=== PATIENT | male | born 1950 | race Asian ===

== ENCOUNTER 2017-01-24 00:48 | Inpatient (IN) | payer OTHER ==
[~2017-01-24] VITALS: Ht 165.1 cm; Wt 65.4 kg
[2017-01-24 02:24] LABS: PLATELET COUNT 372 x10^3mcL (130-400); RED CELL DISTRIBUTION WIDTH 12.9 % (11.5-14.5)
[2017-01-24 02:27] LABS: UA SPECIFIC GRAVITY 1.015 (1.005-1.035); microscopic required? YES; urine erythrocyte 2+ (NEGATIVE)
[2017-01-24 02:32] LABS: BASOPHIL % 0 % (0-2)
[2017-01-24 02:33] LABS: CALCIUM 9.1 mg/dL (8.5-10.1); CARBON DIOXIDE 26.7 mmol/L (21-32); CREATININE SERUM 1.8 mg/dL (0.7-1.3)
[2017-01-24 02:38] LABS: BILIRUBIN TOTAL 0.58 mg/dL (0.20-1.00); TOTAL PROTEIN, SERUM 7.3 g/dL (6.4-8.2)
[2017-01-24] MEDS ORDERED: CLONIDINE HCL0.2 MG (04:26)
[2017-01-24] MEDS ORDERED: LIPITOR20 MG PO (04:27)
[2017-01-24] MEDS ORDERED: PREDNISONE5 MG (04:28)
[2017-01-24] MEDS ORDERED: ATENOLOL50 MG PO (04:28)
[2017-01-24] MEDS ORDERED: FUROSEMIDE80 MG PO (04:28)
[2017-01-24] MEDS ORDERED: TRAMADOL HCL50 MG (04:29)
[2017-01-24 04:40] LABS: MAGNESIUM 2.1 mg/dL (1.8-2.4); PHOSPHOROUS 4.3 mg/dL (2.5-4.9)
[2017-01-24 04:41] LABS: CHOLESTEROL/HDL RATIO 4.3
[2017-01-24 04:48] LABS: FREE T4 1.02 ng/dL (0.76-1.46); FREE THYROXINE INDEX 3.2 ug/dL (1.4-4.5); T3 TOTAL 1.1 ng/mL; T4(THYROXINE) 9.7 ug/dL (4.7-13.3)
[2017-01-24 05:41] VITALS: BP 204/101
[2017-01-24 05:50] LABS: AMPHETAMINE QUAL UR NONE DETECTED (NEG <=1000)
[2017-01-24 07:00] VITALS: BP 159/87
[2017-01-24 13:20] VITALS: BP 169/80
[2017-01-24 15:45] VITALS: BP 145/78
[2017-01-24 18:04] VITALS: BP 162/84
[2017-01-24 20:57] VITALS: BP 174/90
[2017-01-25] VITALS: BP 174/88
[2017-01-25 05:00] VITALS: BP 130/88
[2017-01-25 07:06] LABS: BASOPHIL % 0.5 % (0-2); PLATELET COUNT 247 x10^3mcL (130-400); RED CELL DISTRIBUTION WIDTH 13.6 % (11.5-14.5)
[2017-01-25 07:07] LABS: CALCIUM 8.2 mg/dL (8.5-10.1); CARBON DIOXIDE 26.3 mmol/L (21-32); CREATININE SERUM 1.7 mg/dL (0.7-1.3); MAGNESIUM 1.8 mg/dL (1.8-2.4); PHOSPHOROUS 4.3 mg/dL (2.5-4.9); POTASSIUM SERUM 3.8 mmol/L (3.5-5.1)
[2017-01-25 08:48] VITALS: BP 172/92
[2017-01-25 10:45] VITALS: BP 165/80
[2017-01-25] MEDS ORDERED: FLE10 PO (13:07)
[2017-01-25] MEDS ORDERED: COZ25 PO (13:08)
[2017-01-25] MEDS ORDERED: NOR5 PO (13:08)
[2017-01-25 13:59] VITALS: BP 140/71
[2017-01-25 14:31] VITALS: BP 140/71
== END 2017-01-25 16:48 | disposition home or self-care (01) | DRG 205 ==
LOC: ED 00:48 → DU 03:29
PROVIDERS: Emergency Medicine; ADMIT Family Medicine
DX: M94.0 Chondrocostal junction syndrome [Tietze] (principal); N00.9 Acute nephritic syndrome with unspecified morphologic changes; N17.0 Acute kidney failure with tubular necrosis; E87.1 Hypo-osmolality and hyponatremia; E24.2 Drug-induced Cushing's syndrome; E44.1 Mild protein-calorie malnutrition; D68.69 Other thrombophilia; E11.65 Type 2 diabetes mellitus with hyperglycemia; G89.29 Other chronic pain; M54.5 Low back pain; I10 Essential (primary) hypertension; E87.8 Other disorders of electrolyte and fluid balance, not elsewhere classified; E78.00 Pure hypercholesterolemia, unspecified; Z82.49 Family history of ischemic heart disease and other diseases of the circulatory system; K59.00 Constipation, unspecified
CPT/HCPCS: 83880; 84439; J0360; J7030; J7512; Q0092

== ENCOUNTER 2017-10-07 08:16 | Day surgery (SDC) | payer OTHER ==
[~2017-10-07] VITALS: Ht 165.1 cm; Wt 74.8 kg
[~2017-10-07 08:16] MED LIST: ATENOLOL50 MG PO; CLONIDINE HCL0.2 MG; COZ25 PO; FLE10 PO; FUROSEMIDE80 MG PO; LIPITOR20 MG PO; NOR5 PO; PREDNISONE5 MG; TRAMADOL HCL50 MG
[2017-10-07 08:50] VITALS: BP 159/90
[2017-10-07 13:21] VITALS: BP 166/97
== END 2017-10-07 12:35 | disposition home or self-care (01) ==
LOC: GI 08:16 → OR 11:15 → GI 12:35
PROVIDERS: Internal Medicine Gastroenterology
PROC: 0DBL8ZZ Excision of Transverse Colon, Via Natural or Artificial Opening Endoscopic (ICD-10-PCS; principal; 2017-10-07 11:15)
DX: Z12.11 Encounter for screening for malignant neoplasm of colon (principal); D12.3 Benign neoplasm of transverse colon; K57.30 Diverticulosis of large intestine without perforation or abscess without bleeding; K64.8 Other hemorrhoids; Z86.010 Personal history of colon polyps
CPT/HCPCS: 45378; J1200; J1610; J2250; J2310; J3010; J3490

== ENCOUNTER → 2017-12-12 | Outpatient (CLI) | payer OTHER ==
[2017-12-14 09:35] LABS: ALBUMIN 3.7 g/dL (3.4-5.0); BILIRUBIN TOTAL 0.5 mg/dL (0.20-1.00); CALCIUM 8.9 mg/dL (8.5-10.1); CARBON DIOXIDE 27.8 mmol/L (21-32); CREATININE SERUM 1.5 mg/dL (0.7-1.3); POTASSIUM SERUM 3.8 mmol/L (3.5-5.1); TOTAL PROTEIN, SERUM 7.8 g/dL (6.4-8.2)
[2017-12-14 09:38] LABS: BASOPHIL % 0.2 % (0-2); PLATELET COUNT 313 x10^3mcL (130-400)
[2017-12-14 09:39] LABS: RED CELL DISTRIBUTION WIDTH 15.3 % (11.5-14.5)
== END | disposition home or self-care (01) ==
LOC: RD 14:11
DX: Z01.810 Encounter for preprocedural cardiovascular examination (principal)

== ENCOUNTER 2017-12-21 06:15 | Day surgery (SDC) | payer OTHER ==
[~2017-12-21] VITALS: Ht 165.1 cm; Wt 74.8 kg
[2017-12-21 06:48] VITALS: BP 168/93
[2017-12-21 09:29] VITALS: BP 156/90
== END 2017-12-21 09:25 | disposition home or self-care (01) ==
LOC: DS 06:15 → OR 07:30 → DS 09:25
PROVIDERS: Ophthalmology
PROC: 08RJ3JZ Replacement of Right Lens with Synthetic Substitute, Percutaneous Approach (ICD-10-PCS; principal; 2017-12-21 07:30)
DX: H25.11 Age-related nuclear cataract, right eye (principal); I12.9 Hypertensive chronic kidney disease with stage 1 through stage 4 chronic kidney disease, or unspecified chronic kidney disease; E11.22 Type 2 diabetes mellitus with diabetic chronic kidney disease; N18.3 Chronic kidney disease, stage 3 (moderate); M10.9 Gout, unspecified; E78.5 Hyperlipidemia, unspecified; Z79.84 Long term (current) use of oral hypoglycemic drugs; Z79.52 Long term (current) use of systemic steroids
CPT/HCPCS: 82962; C1780; J2250; J3010; J7040

== ENCOUNTER → 2018-01-26 | Outpatient (CLI) | payer OTHER ==
[2018-01-26 10:10] LABS: microscopic required? YES; urine erythrocyte 1+ (NEGATIVE)
[2018-01-26 10:32] LABS: BASOPHIL % 0.1 % (0-2); PLATELET COUNT 335 x10^3mcL (130-400)
[2018-01-26 10:33] LABS: RED CELL DISTRIBUTION WIDTH 15.1 % (11.5-14.5)
[2018-01-26 13:24] LABS: CREATININE UR 67.4 mg/dL
[2018-01-26 14:23] LABS: ALBUMIN 3.6 g/dL (3.4-5.0); BILIRUBIN TOTAL 0.53 mg/dL (0.20-1.00); CARBON DIOXIDE 25.2 mmol/L (21-32); CREATININE SERUM 1.3 mg/dL (0.7-1.3); POTASSIUM SERUM 3.7 mmol/L (3.5-5.1); TOTAL PROTEIN, SERUM 7.5 g/dL (6.4-8.2)
== END | disposition home or self-care (01) ==
LOC: LB 09:19
PROVIDERS: Internal Medicine
DX: N18.3 Chronic kidney disease, stage 3 (moderate) (principal); I12.9 Hypertensive chronic kidney disease with stage 1 through stage 4 chronic kidney disease, or unspecified chronic kidney disease; E78.5 Hyperlipidemia, unspecified; D63.1 Anemia in chronic kidney disease; Z01.818 Encounter for other preprocedural examination

== ENCOUNTER 2018-02-03 06:27 | Day surgery (SDC) | payer OTHER ==
[2018-02-02 07:35] LABS: BASOPHIL % 0.3 % (0-2); PLATELET COUNT 339 x10^3mcL (130-400)
[2018-02-02 07:36] LABS: RED CELL DISTRIBUTION WIDTH 15.3 % (11.5-14.5)
[2018-02-02 08:12] LABS: ALBUMIN 3.5 g/dL (3.4-5.0); BILIRUBIN TOTAL 0.41 mg/dL (0.20-1.00); CALCIUM 9.4 mg/dL (8.5-10.1); CARBON DIOXIDE 28.9 mmol/L (21-32); CREATININE SERUM 1.4 mg/dL (0.7-1.3); TOTAL PROTEIN, SERUM 7.6 g/dL (6.4-8.2)
[~2018-02-03] VITALS: Ht 165.1 cm; Wt 74.8 kg
[2018-02-03 06:52] VITALS: BP 161/93
[2018-02-03 10:59] VITALS: BP 140/89
== END 2018-02-03 09:20 | disposition home or self-care (01) ==
LOC: DS 06:27 → OR 08:30 → DS 09:20
PROVIDERS: Ophthalmology
PROC: 08RK3JZ Replacement of Left Lens with Synthetic Substitute, Percutaneous Approach (ICD-10-PCS; principal; 2018-02-03 07:30)
DX: H25.12 Age-related nuclear cataract, left eye (principal)
CPT/HCPCS: C1780; J2001; J2250

== ENCOUNTER → 2018-05-08 | Outpatient (CLI) | payer OTHER ==
[2018-05-08 09:06] LABS: BASOPHIL % 0.5 % (0-2); PLATELET COUNT 348 x10^3mcL (130-400); RED CELL DISTRIBUTION WIDTH 13.7 % (11.5-14.5)
[2018-05-08 09:10] LABS: BILIRUBIN TOTAL 0.39 mg/dL (0.20-1.00); CALCIUM 8.5 mg/dL (8.5-10.1); CARBON DIOXIDE 24.3 mmol/L (21-32); CREATININE SERUM 1.5 mg/dL (0.7-1.3); POTASSIUM SERUM 3.6 mmol/L (3.5-5.1); TOTAL PROTEIN, SERUM 7.4 g/dL (6.4-8.2)
[2018-05-08 09:29] LABS: ALBUMIN 3.1 g/dL (3.4-5.0)
== END | disposition home or self-care (01) ==
LOC: LB 08:29
DX: E11.9 Type 2 diabetes mellitus without complications (principal)

== ENCOUNTER → 2018-05-31 | Outpatient (CLI) | payer OTHER ==
[2018-05-31 08:36] LABS: microscopic required? YES; urine erythrocyte TRACE (NEGATIVE)
[2018-05-31 08:37] LABS: BASOPHIL % 0.3 % (0-2); PLATELET COUNT 348 x10^3mcL (130-400); RED CELL DISTRIBUTION WIDTH 14.2 % (11.5-14.5)
[2018-05-31 09:24] LABS: ALBUMIN 3.7 g/dL (3.4-5.0); BILIRUBIN TOTAL 0.38 mg/dL (0.20-1.00); CALCIUM 9.4 mg/dL (8.5-10.1); CARBON DIOXIDE 25.6 mmol/L (21-32); CREATININE SERUM 1.6 mg/dL (0.7-1.3); POTASSIUM SERUM 4.2 mmol/L (3.5-5.1); TOTAL PROTEIN, SERUM 8.2 g/dL (6.4-8.2); URIC ACID 7.5 mg/dL (3.5-7.2)
[2018-05-31 10:00] LABS: CHOLESTEROL/HDL RATIO 4.5
[2018-06-01 10:43] LABS: CREATININE UR 49.1 mg/dL (Not Estab.)
== END | disposition home or self-care (01) ==
LOC: LB 07:40
PROVIDERS: Internal Medicine
DX: I12.9 Hypertensive chronic kidney disease with stage 1 through stage 4 chronic kidney disease, or unspecified chronic kidney disease (principal); E78.5 Hyperlipidemia, unspecified; D63.1 Anemia in chronic kidney disease; N04.9 Nephrotic syndrome with unspecified morphologic changes

== ENCOUNTER → 2018-08-25 | Outpatient (CLI) | payer OTHER ==
[2018-08-25 07:47] LABS: microscopic required? YES; urine erythrocyte TRACE (NEGATIVE)
[2018-08-25 07:48] LABS: BASOPHIL % 0.4 % (0-2); PLATELET COUNT 321 x10^3mcL (130-400)
[2018-08-25 08:08] LABS: ALBUMIN 3.7 g/dL (3.4-5.0); ALKALINE PHOSPHATASE 82 U/L (46-116); ALT/SGPT 35 U/L (16-63); AST/SGOT 29 U/L (15-37); BILIRUBIN TOTAL 0.4 mg/dL (0.20-1.00); CALCIUM 9.2 mg/dL (8.5-10.1); CARBON DIOXIDE 28.2 mmol/L (21-32); CHLORIDE SERUM 100 mmol/L (98-107); CHOLESTEROL 178 mg/dL (<200); CHOLESTEROL/HDL RATIO 4.3; CREATININE SERUM 1.7 mg/dL (0.7-1.3); GFR1 43 mL/min; GLUCOSE SERUM 139 mg/dL (74-106); HDL CHOLESTEROL 41 mg/dL (40-60); POTASSIUM SERUM 3.8 mmol/L (3.5-5.1); RED CELL DISTRIBUTION WIDTH 15.5 % (11.5-14.5); SODIUM SERUM 138 mmol/L (136-145); TOTAL PROTEIN, SERUM 8.1 g/dL (6.4-8.2); URIC ACID 7.7 mg/dL (3.5-7.2)
[2018-08-25 08:16] LABS: TRIGLYCERIDES 416 mg/dL (<150)
[2018-08-26 09:08] LABS: CREATININE UR 57.4 mg/dL (Not Estab.)
== END | disposition home or self-care (01) ==
LOC: LB 07:19
PROVIDERS: Internal Medicine
DX: E11.9 Type 2 diabetes mellitus without complications (principal); I12.9 Hypertensive chronic kidney disease with stage 1 through stage 4 chronic kidney disease, or unspecified chronic kidney disease; E78.5 Hyperlipidemia, unspecified; N04.9 Nephrotic syndrome with unspecified morphologic changes

== ENCOUNTER → 2018-11-14 | Outpatient (CLI) | payer OTHER ==
[2018-11-14 09:27] LABS: BASOPHIL % 0.6 % (0-2); PLATELET COUNT 322 x10^3mcL (130-400)
[2018-11-14 09:34] LABS: RED CELL DISTRIBUTION WIDTH 14.7 % (11.5-14.5)
[2018-11-14 09:41] LABS: ALBUMIN 3.5 g/dL (3.4-5.0); BILIRUBIN TOTAL 0.32 mg/dL (0.20-1.00); CREATININE SERUM 1.4 mg/dL (0.7-1.3); POTASSIUM SERUM 4.2 mmol/L (3.5-5.1); TOTAL PROTEIN, SERUM 8.1 g/dL (6.4-8.2); URIC ACID 7.2 mg/dL (3.5-7.2)
[2018-11-14 09:45] LABS: UA SPECIFIC GRAVITY <=1.005 (1.005-1.035); microscopic required? YES; urine erythrocyte 1+ (NEGATIVE)
[2018-11-15 10:05] LABS: CREATININE UR 34.1 mg/dL (Not Estab.)
== END | disposition home or self-care (01) ==
LOC: LB 09:01
PROVIDERS: Internal Medicine
DX: I12.9 Hypertensive chronic kidney disease with stage 1 through stage 4 chronic kidney disease, or unspecified chronic kidney disease (principal); E78.5 Hyperlipidemia, unspecified

== ENCOUNTER 2018-12-01 14:09 | Emergency (ER) | payer OTHER ==
[~2018-12-01] VITALS: Ht 165.1 cm; Wt 74.0 kg
[2018-12-01 14:25] VITALS: Ht 165.1 cm; Wt 74.0 kg
[2018-12-01 15:11] LABS: BASOPHIL % 0.4 % (0-2); PLATELET COUNT 339 x10^3mcL (130-400)
[2018-12-01 15:18] LABS: CALCIUM 8.6 mg/dL (8.5-10.1); CREATININE SERUM 1.4 mg/dL (0.7-1.3); POTASSIUM SERUM 3.6 mmol/L (3.5-5.1)
[2018-12-01 15:31] LABS: BILIRUBIN TOTAL 0.24 mg/dL (0.20-1.00); T4(THYROXINE) 7.3 ug/dL (4.7-13.3); TOTAL PROTEIN, SERUM 7.6 g/dL (6.4-8.2)
[2018-12-01 15:33] LABS: ALBUMIN 3.3 g/dL (3.4-5.0)
[2018-12-01 15:54] LABS: microscopic required? YES; urine erythrocyte 1+ (NEGATIVE)
[2018-12-01 16:55] VITALS: BP 176/87
== END 2018-12-01 16:55 | disposition home or self-care (01) ==
LOC: ED 14:09
PROVIDERS: Emergency Medicine
DX: K59.00 Constipation, unspecified (principal); K57.90 Diverticulosis of intestine, part unspecified, without perforation or abscess without bleeding
CPT/HCPCS: 36415; 82962; J7030

== ENCOUNTER → 2019-03-13 | Outpatient (CLI) | payer OTHER ==
[2019-03-13 09:51] LABS: BASOPHIL % 0.5 % (0-2); PLATELET COUNT 358 x10^3mcL (130-400); RED CELL DISTRIBUTION WIDTH 14.5 % (11.5-14.5)
[2019-03-13 10:46] LABS: CARBON DIOXIDE 27.3 mmol/L (21-32); CHLORIDE SERUM 100 mmol/L (98-107); CREATININE SERUM 1.6 mg/dL (0.7-1.3); GFR1 46 mL/min; GLUCOSE SERUM 134 mg/dL (74-106); POTASSIUM SERUM 3.7 mmol/L (3.5-5.1); SODIUM SERUM 136 mmol/L (136-145)
[2019-03-13 10:47] LABS: ALBUMIN 3.2 g/dL (3.4-5.0); ALKALINE PHOSPHATASE 92 U/L (46-116); ALT/SGPT 37 U/L (16-63); AST/SGOT 30 U/L (15-37); BILIRUBIN TOTAL 0.41 mg/dL (0.20-1.00); CALCIUM 9.2 mg/dL (8.5-10.1); CHOLESTEROL 215 mg/dL (<200); TRIGLYCERIDES 527 mg/dL (<150); URIC ACID 7.4 mg/dL (3.5-7.2)
[2019-03-13 10:48] LABS: CHOLESTEROL/HDL RATIO 5.1; HDL CHOLESTEROL 42 mg/dL (40-60)
[2019-03-13 13:44] LABS: CREATININE UR 80.6 mg/dL
[2019-03-13 13:51] LABS: microscopic required? YES; urine erythrocyte 1+ (NEGATIVE)
[2019-03-13 13:52] LABS: UA SPECIFIC GRAVITY <1.005 (1.005-1.035)
== END | disposition home or self-care (01) ==
LOC: LB 09:10
PROVIDERS: Internal Medicine
DX: E11.9 Type 2 diabetes mellitus without complications (principal); I12.9 Hypertensive chronic kidney disease with stage 1 through stage 4 chronic kidney disease, or unspecified chronic kidney disease; E78.5 Hyperlipidemia, unspecified

== ENCOUNTER → 2019-07-04 | Outpatient (CLI) | payer OTHER ==
[2019-07-04 09:13] LABS: ALKALINE PHOSPHATASE 56 U/L (46-116); ALT/SGPT 34 U/L (16-63); AST/SGOT 28 U/L (15-37); BILIRUBIN TOTAL 0.3 mg/dL (0.20-1.00); CALCIUM 8.8 mg/dL (8.5-10.1); CARBON DIOXIDE 25.2 mmol/L (21-32); CHLORIDE SERUM 104 mmol/L (98-107); CREATININE SERUM 1.7 mg/dL (0.7-1.3); GFR1 43 mL/min; GLUCOSE SERUM 137 mg/dL (74-106); HDL CHOLESTEROL 41 mg/dL (40-60); POTASSIUM SERUM 4.2 mmol/L (3.5-5.1); SODIUM SERUM 139 mmol/L (136-145); URIC ACID 7.3 mg/dL (3.5-7.2)
[2019-07-04 09:24] LABS: BASOPHIL % 0.4 % (0-2); PLATELET COUNT 284 x10^3mcL (130-400)
[2019-07-04 09:32] LABS: CHOLESTEROL 259 mg/dL (<200); CHOLESTEROL/HDL RATIO 6.3; TRIGLYCERIDES 855 mg/dL (<150)
[2019-07-04 10:00] LABS: RED CELL DISTRIBUTION WIDTH 14.9 % (11.5-14.5)
[2019-07-04 10:07] LABS: UA SPECIFIC GRAVITY 1.015 (1.005-1.035); microscopic required? YES; urine erythrocyte 2+ (NEGATIVE)
[2019-07-04 10:15] LABS: CREATININE UR 101.8 mg/dL
== END | disposition home or self-care (01) ==
LOC: LB 08:26
PROVIDERS: Internal Medicine
DX: I12.9 Hypertensive chronic kidney disease with stage 1 through stage 4 chronic kidney disease, or unspecified chronic kidney disease (principal); E78.5 Hyperlipidemia, unspecified

== ENCOUNTER → 2019-09-06 | Outpatient (CLI) | payer OTHER ==
[2019-09-06 16:28] LABS: BASOPHIL % 0.6 % (0-2); PLATELET COUNT 301 x10^3mcL (130-400)
[2019-09-06 16:29] LABS: BILIRUBIN TOTAL 0.34 mg/dL (0.20-1.00); CALCIUM 8.1 mg/dL (8.5-10.1); CARBON DIOXIDE 27.4 mmol/L (21-32); CREATININE SERUM 2.1 mg/dL (0.7-1.3); POTASSIUM SERUM 4.2 mmol/L (3.5-5.1); URIC ACID 7.5 mg/dL (3.5-7.2)
[2019-09-06 16:30] LABS: ALBUMIN 2.9 g/dL (3.4-5.0); RED CELL DISTRIBUTION WIDTH 14.8 % (11.5-14.5)
[2019-09-06 17:57] LABS: ERYTHROCYTE SED RATE 81 mm/hr (0-20)
[2019-09-06 18:53] LABS: microscopic required? YES; urine erythrocyte 1+ (NEGATIVE)
[2019-09-12 13:05] LABS: cnab c-anca <1:20 titer (Neg:<1:20); cnab p-anca <1:20 titer (Neg:<1:20)
== END | disposition home or self-care (01) ==
LOC: RD 15:20
DX: M25.562 Pain in left knee (principal)
CPT/HCPCS: 83520; 86256

== ENCOUNTER → 2019-10-03 | Outpatient (CLI) | payer OTHER ==
[2019-10-03 09:11] LABS: BASOPHIL % 0.4 % (0-2); PLATELET COUNT 272 x10^3mcL (130-400); RED CELL DISTRIBUTION WIDTH 14.6 % (11.5-14.5)
[2019-10-03 09:25] LABS: microscopic required? YES; urine erythrocyte 2+ (NEGATIVE)
[2019-10-03 09:29] LABS: BILIRUBIN TOTAL 0.39 mg/dL (0.20-1.00); CALCIUM 8.6 mg/dL (8.5-10.1); CARBON DIOXIDE 27.4 mmol/L (21-32); CREATININE SERUM 2.2 mg/dL (0.7-1.3); POTASSIUM SERUM 3.8 mmol/L (3.5-5.1); TOTAL PROTEIN, SERUM 7.1 g/dL (6.4-8.2); URIC ACID 7.8 mg/dL (3.5-7.2)
[2019-10-03 09:30] LABS: ALBUMIN 2.9 g/dL (3.4-5.0)
[2019-10-03 09:38] LABS: HDL CHOLESTEROL 41 mg/dL (40-60)
[2019-10-03 09:39] LABS: CHOLESTEROL 233 mg/dL (<200); CHOLESTEROL/HDL RATIO 5.7; TRIGLYCERIDES 799 mg/dL (<150)
[2019-10-03 09:47] LABS: CREATININE UR 101.3 mg/dL (0.95-2.49)
== END | disposition home or self-care (01) ==
LOC: LB 08:47
PROVIDERS: ATTEND Internal Medicine
DX: I12.9 Hypertensive chronic kidney disease with stage 1 through stage 4 chronic kidney disease, or unspecified chronic kidney disease (principal); E78.5 Hyperlipidemia, unspecified

== ENCOUNTER → 2019-12-28 | Outpatient (CLI) | payer OTHER ==
[2019-12-28 08:53] LABS: microscopic required? YES; urine erythrocyte 2+ (NEGATIVE)
[2019-12-28 09:07] LABS: BASOPHIL % 0.4 % (0-2); PLATELET COUNT 281 x10^3mcL (130-400); RED CELL DISTRIBUTION WIDTH 14.4 % (11.5-14.5)
[2019-12-28 09:32] LABS: CREATININE UR 74.7 mg/dL
[2019-12-28 09:36] LABS: ALKALINE PHOSPHATASE 64 U/L (46-116); ALT/SGPT 33 U/L (16-63); AST/SGOT 23 U/L (15-37); BILIRUBIN TOTAL 0.4 mg/dL (0.20-1.00); CARBON DIOXIDE 26.2 mmol/L (21-32); CHLORIDE SERUM 99 mmol/L (98-107); CREATININE SERUM 2.3 mg/dL (0.7-1.3); GFR1 30 mL/min; GLUCOSE SERUM 181 mg/dL (74-106); POTASSIUM SERUM 3.6 mmol/L (3.5-5.1); SODIUM SERUM 131 mmol/L (136-145); TOTAL PROTEIN, SERUM 6.4 g/dL (6.4-8.2)
[2019-12-28 09:39] LABS: ALBUMIN 2.7 g/dL (3.4-5.0)
[2019-12-28 09:51] LABS: C REACTIVE PROTEIN < 0.2 mg/dL (<=0.9)
[2019-12-28 10:29] LABS: ERYTHROCYTE SED RATE 84 mm/hr (0-20)
== END | disposition home or self-care (01) ==
LOC: LB 08:13
DX: N05.7 Unspecified nephritic syndrome with diffuse crescentic glomerulonephritis (principal)
CPT/HCPCS: 83520; 86256

== ENCOUNTER → 2020-04-30 | Outpatient (CLI) | payer OTHER ==
[2020-04-30 08:54] LABS: BASOPHIL % 1.2 % (0.2-1.5); PLATELET COUNT 297 x10^3mcL (152-348)
[2020-04-30 08:57] LABS: RED CELL DISTRIBUTION WIDTH 15.6 % (12.1-16.2)
[2020-04-30 09:07] LABS: microscopic required? YES; urine erythrocyte 2+ (NEGATIVE)
[2020-04-30 09:14] LABS: ALKALINE PHOSPHATASE 70 U/L (46-116); ALT/SGPT 32 U/L (16-63); AST/SGOT 27 U/L (15-37); BILIRUBIN TOTAL 0.31 mg/dL (0.20-1.00); CARBON DIOXIDE 24.9 mmol/L (21-32); CHLORIDE SERUM 101 mmol/L (98-107); GLUCOSE SERUM 110 mg/dL (74-106); POTASSIUM SERUM 4.4 mmol/L (3.5-5.1); SODIUM SERUM 136 mmol/L (136-145); TOTAL PROTEIN, SERUM 6.7 g/dL (6.4-8.2); URIC ACID 6.9 mg/dL (3.5-7.2)
[2020-04-30 09:28] LABS: ALBUMIN 2.4 g/dL (3.4-5.0)
[2020-04-30 09:44] LABS: CREATININE UR 64.5 mg/dL
== END | disposition home or self-care (01) ==
LOC: LB 08:20
PROVIDERS: ATTEND Internal Medicine
DX: I12.9 Hypertensive chronic kidney disease with stage 1 through stage 4 chronic kidney disease, or unspecified chronic kidney disease (principal); E78.5 Hyperlipidemia, unspecified